=== PATIENT | female | born 1985 | race Caucasian/White ===

== ENCOUNTER 2019-12-15 11:06 | Emergency (ER) | payer MEDICAID ==
[~2019-12-15] VITALS: Ht 154.9 cm; Wt 55.0 kg
[2019-12-15 11:11] VITALS: BP 113/90
[2019-12-15] MEDS ORDERED: CYCL-1 PO (12:09)
== END 2019-12-15 12:17 | disposition home or self-care (01) ==
LOC: ER 11:07
DX: S00.12XA Contusion of left eyelid and periocular area, initial encounter (principal); H11.32 Conjunctival hemorrhage, left eye; R51 Headache; Z72.89 Other problems related to lifestyle; Z60.2 Problems related to living alone; Z79.899 Other long term (current) drug therapy; Y08.89XA Assault by other specified means, initial encounter; Y93.89 Activity, other specified; Y92.89 Other specified places as the place of occurrence of the external cause; Y99.8 Other external cause status
CPT/HCPCS: 99283

== ENCOUNTER 2020-01-16 20:48 | Emergency (ER) | payer MEDICAID ==
[~2020-01-16] VITALS: Ht 154.9 cm; Wt 54.5 kg
[~2020-01-16 20:48] MED LIST: CYCL-1 PO
[2020-01-16 20:50] VITALS: BP 112/78
[2020-01-16] MEDS ORDERED: triamcinolone acetonide 40mg/ml inj IM ONE (21:25)
[2020-01-16] MEDS ORDERED: PRED10TA PO (21:26)
== END 2020-01-16 21:46 | disposition home or self-care (01) ==
LOC: ER 20:48
DX: L25.9 Unspecified contact dermatitis, unspecified cause (principal); Z60.2 Problems related to living alone; Z79.899 Other long term (current) drug therapy
CPT/HCPCS: 96372; 99283; J3301

== ENCOUNTER 2021-03-02 11:44 | Emergency (ER) | payer OTHER, MEDICAID ==
[~2021-03-02] VITALS: Ht 152.4 cm; Wt 54.5 kg
[~2021-03-02 11:44] MED LIST changes: +PRED10TA PO
[2021-03-02 11:49] VITALS: BP 119/78
[2021-03-02] MEDS ORDERED: proparacaine 0.5% ophthalmic drops 15ml EACHEYE ONE (13:15)
[2021-03-02] MEDS ORDERED: ERYT1OIN6 LEFTEYE (13:32)
[2021-03-02] MEDS ORDERED: erythromycin ophthalmic ointment 1gm tube LEFTEYE ONE (13:35)
== END 2021-03-02 14:25 | disposition home or self-care (01) ==
LOC: ER 11:45
DX: S05.02XA Injury of conjunctiva and corneal abrasion without foreign body, left eye, initial encounter (principal); Z72.89 Other problems related to lifestyle; Z79.2 Long term (current) use of antibiotics; X58.XXXA Exposure to other specified factors, initial encounter; Y93.89 Activity, other specified; Y92.89 Other specified places as the place of occurrence of the external cause; Y99.8 Other external cause status
CPT/HCPCS: 99283